=== PATIENT | male | born 1985 | race Asian ===

== ENCOUNTER 2016-12-02 21:22 | Emergency (ER) | payer BC ==
[~2016-12-02] VITALS: Ht 185.4 cm; Wt 86.2 kg
[2016-12-02 22:56] LABS: APPEARANCE,URINE SLIGHTLY CLOUDY; KETONES,URINE NEGATIVE (NEGATIVE); LEUKOCYTE ESTERASE ,URINE NEGATIVE (NEGATIVE); NITRITE,URINE POSITIVE (NEGATIVE); PH,URINE 5 (4.5-8.0); PROTEIN,URINE 2+ (NEGATIVE); UROBILINOGEN,URINE 8 MG/DL (0.0-1.0)
[2016-12-02 22:58] LABS: RBC,URINE 0-2 /HPF (0 - 0); WBC,URINE 0-2 /HPF (0 - 0)
[2016-12-02 22:59] LABS: BACTERIA,URINE OCCASIONAL /HPF
[2016-12-02] MEDS ORDERED: DOXYCYCLINE MO100 MG ORAL (23:22)
[2016-12-02] MEDS ORDERED: Lidocaine 1% MPF 10mg/ml 5ml ONE (23:44)
[2016-12-02] MEDS ORDERED: NKM (23:53)
[2016-12-02 23:56] VITALS: BP 126/82
--- NOTE | 2016-12-03 02:46 | Emergency Room Report ---
History of Present Illness General Chief Complaint: Male Urogenital Problems Source: Patient Present Illness HPI 31 YO M with "penile swelling", foul-smelling discharge and dysuria for 2 days. Occurred after using "dirty towel" to cum into after vaginal intercourse with . Denies testicular pain, polyuria, fever/chills, abd pain, nausea/vomiting , flank pain, history of STDs in self or . Allergies: Coded Allergies: No Known Allergies (Unverified , 12/02/16) Patient History Past Medical History: none Past Surgical History: none Pertinent Family History: none Social History: Denies: alcohol use, drug use, smoking Immunizations: UTD Reviewed Nursing Documentation: PMH: Agreed, PSxH: Agreed Nursing Documentation-PMH Past Medical History: No Stated History Review of Systems All Other Systems: negative except mentioned in HPI Physical Exam Vital Signs Date Time Temp Pulse Resp B/P Pulse Ox O2 Delivery O2 Flow Rate FiO2 12/02/16 21:45 98.4 83 12 135/88 98 Room Air Sp02 EP Interpretation: reviewed, normal General Appearance: normal inspection, well appearing, no apparent distress, alert Head: atraumatic ENT: normal ENT inspection, hearing grossly normal, normal voice Neck: normal inspection, full range of motion, supple, no bony tend Respiratory: normal inspection, lungs clear, normal breath sounds, no respiratory distress, no retraction, no wheezing Cardiovascular #1: regular rate, rhythm, no edema Gastrointestinal: normal inspection, normal bowel sounds, non tender, soft, no guarding, no hernia Genitourinary: no CVA tenderness, other - Scrotum soft, NT/ND. There is a considerable amount of vogel discharge soaking scrotal area/shaft of penis. Circumcised penis. No active discharge expresed from penis. Musculoskeletal: normal inspection, back normal, normal range of motion, Deena' s Sign negative Neurologic: normal inspection, alert, responsive, speech normal Psychiatric: normal inspection, judgement/insight normal, mood/affect normal Skin: normal inspection, normal color, no rash Medical Decision Making Diagnostic Impression: Primary Impression: Dysuria ER Course 31 YO M with dysuria, discharge. VSS. Afebrile. No systemic symptoms. UA with + nitrites. Tx with IM ceftriaxone and 7-day course of Doxy DC home Last Vital Signs Date Time Temp Pulse Resp B/P Pulse Ox O2 Delivery O2 Flow Rate FiO2 12/02/16 23:56 98.4 84 12 126/82 98 Room Air Status: improved Disposition: HOME, SELF-CARE Condition: Improved Scripts Doxycycline Monohydrate* (DOXYCYCLINE MONOHYDRATE*) 100 Mg Capsule 100 MG ORAL Q12H for 7 Days, #13 CAP 0 Refills Prov: LULÚ ARAUJO M.D. 12/02/16 Patient Instructions: Urethritis, Adult Additional Instructions: - Take all antibiotics until finished - Follow up with your doctor in 2-3 days LULÚ ARAUJO M.D. Dec 03, 2016 02:46
== END 2016-12-02 23:57 | disposition home or self-care (01) ==
LOC: EMR 22:37
DX: R30.0 Dysuria (principal); N48.89 Other specified disorders of penis; R36.9 Urethral discharge, unspecified
CPT/HCPCS: 81003; 96372; 99283; J0696